=== PATIENT | female | born 1950 | race Caucasian/White ===

== ENCOUNTER → 2019-08-16 14:59 | Outpatient (CLI) | payer MEDICARE, OTHER, SELFPAY ==
--- NOTE | ~2019-08-16 | MM_ITS ---
EXAMINATION: MM screening [facility] BI w yecenia HISTORY: Screening mammogram TECHNIQUE: Craniocaudal and mediolateral oblique 3-D tomosynthesis images were obtained and synthetic 2-D images were generated. CAD analysis was submitted and interpreted. COMPARISON: 02/11/2016, 07/01/2013, 04/23/2010 BREAST PARENCHYMAL COMPOSITION: There are scattered areas of fibroglandular density. FINDINGS: There is no evidence of suspicious mass, calcification, or architectural distortion to sugg est malignancy in either breast. There has been no suspicious interval change. IMPRESSION: 1. No mammographic evidence of malignancy. 2. Recommend routine screening mammography in one year. BI-RADS Category 1: Negative Reviewed, dictated and finalized at location A.
== END ==
PROVIDERS: PCP Nurse Practitioner Adult Health; Visit Provider Nurse Practitioner Adult Health
DX: Z12.31 Encounter for screening mammogram for malignant neoplasm of breast (principal)
CPT/HCPCS: 77063; 77067

== ENCOUNTER → 2020-01-07 07:36 | Outpatient (CLI) | payer MEDICARE, OTHER, SELFPAY ==
--- NOTE | ~2020-01-07 | MR_ITS ---
EXAMINATION: MR knee RT wo con DATE: 01/07/2020 08:31 INDICATION: Medial right knee pain 3 weeks post twisting injury. TECHNIQUE: Magnetic resonance imaging (MRI) of the right knee was performed without intravenous contr ast. Sequences included coronal PD-weighted FSE, coronal PD-weighted FS FSE, sagittal T2-weighted FS E, sagittal PD-weighted FS FSE and axial PD weighted fat saturated FSE. COMPARISON: None. FINDINGS: Medial compartment: Complex tear of the posterior horn of the medial meniscus including a full/near full-thickness radial tear near the posterior root. There is longitudinal vertical tear plane which extends 5 mm medially from the radial tear. There is thickening and increased intrasubstance signal in the more medial post erior horn extending to the posterior body of the medial meniscus which does not extend to the articu lar surface which could represent either additional intrasubstance tearing or mucoid degeneration. Ar ticular cartilage is normal. Lateral compartment: Lateral meniscus is normal. Articular cartilage is normal. Patellofemoral compartment: Region of full/near full-thickness chondral ulceration without degenerative subchondral changes along the medial patellar facet. Additional deep fissuring at the apical ridge. Ligaments and tendons: Anterior and posterior cruciate ligaments are normal. The medial collateral ligament and fibular francesco ateral ligament complex are normal. Mild distal quadriceps tendinopathy with moderate sized enthesoph yte at its patellar insertion. Mild proximal patellar tendinopathy. The visualized medial and lateral hamstring tendons as well as the iliotibial band are normal. Fluid: Physiologic amount of fluid in the joint space. No loose osteochondral bodies identified. There is a small Kelly's cyst which may be partially ruptured with less well-defined edema extending cephalad al corbin the anterior margin of the distal semimembranosus muscle belly. Osseous/other: Mild subarticular edema at the central aspect of the medial tibial plateau without fracture line or o verlying chondromalacia which could be related to bone contusion or stress reaction related to altere d weight distribution resulting from the meniscal tear. Marrow signal is otherwise normal. No fractur e or pathologic marrow replacing process. IMPRESSION: 1. Complex tear including full/near full-thickness radial component at the posterior horn of the medi al meniscus. 2. Mild subarticular marrow edema consistent with bone contusion versus stress reaction at the centra l aspect of the medial tibial plateau. 3. 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 4. Likely partially ruptured small Eklly's cyst. Reviewed, dictated and finalized at location A. IMPRESSION: 1. Complex tear including full/near full-thickness radial component at the post erior horn of the medial meniscus. 2. Mild subarticular marrow edema consistent with bone contusion versus stress reaction at the central aspect of the medial tibial plateau. 3. Mild patellofemoral osteoarthritis with moderate to high grade patellar quique dromalacia. 4. Likely partially ruptured small Kelly's cyst.
== END ==
PROVIDERS: Visit Provider Nurse Practitioner Adult Health
DX: M25.561 Pain in right knee (principal); S83.231A Complex tear of medial meniscus, current injury, right knee, initial encounter; M79.89 Other specified soft tissue disorders; M17.11 Unilateral primary osteoarthritis, right knee; M22.2X1 Patellofemoral disorders, right knee; M71.21 Synovial cyst of popliteal space [Baker], right knee
CPT/HCPCS: 73721

== ENCOUNTER 2020-01-29 10:25 | Outpatient (CLI) | payer MEDICARE, OTHER, SELFPAY ==
--- NOTE | 2020-01-29 | ECG_ITS ---
Measurements Intervals Novelty Rate: 79 P: 4 WV: 137 QRS: 11 QRSD: 114 T: 53 QT: 397 QTc: 458 Interpretive Statements SINUS RHYTHM RIGHT BUNDLE BRANCH BLOCK ABNORMAL ECG Electronically Signed On 01-29-2020 16:02:18 CDT by Jose Gomez D.O.
[2020-01-29 12:25] LABS: Anion Gap 4 mmol/L (8-16); Blood Urea Nitrogen 19 mg/dL (7-17); Calcium 9.5 mg/dL (8.4-10.2); Carbon Dioxide 28 mmol/L (22-30); Chloride 105 mmol/L (98-107); Estimated Glomerular Filt Rate > 60; Glucose 118 mg/dL (65-105); Potassium 4.2 mmol/L (3.4-5.0); Sodium 137 mmol/L (137-145)
== END 2020-01-29 10:26 | disposition home or self-care (01) ==
PROVIDERS: PCP Nurse Practitioner Adult Health
DX: Z01.810 Encounter for preprocedural cardiovascular examination (principal); Z01.812 Encounter for preprocedural laboratory examination; Z13.89 Encounter for screening for other disorder; I45.10 Unspecified right bundle-branch block; E13.9 Other specified diabetes mellitus without complications; Z86.79 Personal history of other diseases of the circulatory system
CPT/HCPCS: 36415; 80048; 93005

== ENCOUNTER → 2020-09-10 10:50 | Outpatient (CLI) | payer MEDICARE, OTHER, SELFPAY ==
--- NOTE | ~2020-09-10 | DEXA_ITS ---
Bone Density Report Name: Kylie Mccoy Age: 69 Sex: Female Ethnicity: White Date of : 1950 Indication: osteopenia; parental hip fracture; height loss; history of glucocorticoids; postmenopausal Referring Provider: JOSEPH CARDENAS Study: Bone densitometry was performed. Exam Date: September 10, 2020 Accession number: [id number] Bone Density: Region BMD T-score Z-score Classification AP Spine (L1, L2, L4) 0.964 -0.6 1.3 Normal Femoral Neck (Left) 0.595 -2.3 -0.6 Osteopenia Total Hip (Left) 0.813 -1.1 0.3 Osteopenia Femoral Neck (Right) 0.619 -2.1 -0.4 Osteopenia Total Hip (Right) 0.772 -1.4 0.0 Osteopenia Total Hip Mean 0.793 -1.3 0.2 Osteopenia World Health Organization criteria for BMD impression classify patients as: Normal (T-score at or above -1.0), Osteopenia (T-score between -1.0 and -2.5), or Osteoporosis (T-score at or below -2.5). 10-year Fracture Risk(1): Major Osteoporotic Fracture 31% Hip Fracture 6.5% Reported Risk Factors: [place] (), Neck BMD=0.595, BMI=30.7, parental fracture, glucocorticoids (1) FRAX(R) Version 3.08. Fracture probability calculated for an untreated patient. Fracture probability may be lower if the patient has received treatment. Previous Exams: Region Exam Age BMD T-score BMD Change BMD Change Date g/cm2 vs Baseline vs Previous AP Spine(L1, L2, L4) 09/10/2020 69 0.964 -0.6 -0.033* -0.033* 09/29/2017 66 0.996 -0.3 Total Hip(Left) 09/10/2020 69 0.813 -1.1 0.025 0.025 09/29/2017 66 0.788 -1.3 Total Hip(Right) 09/10/2020 69 0.772 -1.4 -0.006 -0.006 09/29/2017 66 0.778 -1.3 *Denotes significance at 95% confidence level, LSC for AP Spine = 0.022 g/cm2, LSC for Total Hip = 0.027 g/cm2 Clinical Information Provided by Patient: Parent has had a hip fracture Has taken Glucocorticoids Has used the following medications: Vitamin D, Calcium Patient maximum height was 65 Menopause Age: 54 Drinks caffeinated beverages Onset of menses at age 14 Number of children 3 Impression: The patient has low bone mass, based on the Left Femoral Neck T-score. The patient has an estimated ten-year risk of hip fracture of 6.5% and an estimated ten-year risk of major fracture of 31%, based on the WHO FRAX algorithm. The patient has risk factors, including: parental hip fracture, history of glucocorticoid therapy. The BMD for the AP S
== END ==
DX: Z78.0 Asymptomatic menopausal state (principal); M85.89 Other specified disorders of bone density and structure, multiple sites
CPT/HCPCS: 77080

== ENCOUNTER → 2020-12-22 10:41 | Outpatient (CLI) | payer MEDICARE, OTHER, SELFPAY ==
--- NOTE | ~2020-12-22 | MM_ITS ---
EXAMINATION: MM screening [facility] w yecenia HISTORY: Screening TECHNIQUE: Craniocaudal and mediolateral oblique 3-D tomosynthesis images were obtained and synthetic 2-D images were generated. CAD analysis was submitted and interpreted. COMPARISON: Comparison to multiple prior studies sequentially, with oldest reviewed study dated 07/01. BREAST PARENCHYMAL COMPOSITION: There are scattered areas of fibroglandular density. FINDINGS: There is no evidence of suspicious mass, calcification, or architectural distortion to sugg est malignancy in either breast. There has been no suspicious interval change. IMPRESSION: 1. No mammographic evidence of malignancy. 2. Recommend routine screening mammography in one year. BI-RADS Category 1: Negative Reviewed, dictated and finalized at location A.
== END ==
PROVIDERS: PCP Nurse Practitioner Adult Health; Visit Provider Nurse Practitioner Adult Health
DX: Z12.31 Encounter for screening mammogram for malignant neoplasm of breast (principal)
CPT/HCPCS: 77063; 77067